=== PATIENT | female | born 1945 | race Caucasian/White ===

== ENCOUNTER → 2023-09-03 11:21 | Outpatient (REF) | payer MEDICARE, SELFPAY ==
[2023-09-03 11:56] LABS: % Basophils 0.6 % (0-2); % Eosinophils 4.1 % (0-6); % Immature Granulocytes 0.1 % (0-0.5); % Lymphocytes 28.3 % (20.5-51.1); % Monocytes 5.3 % (1.7-9.3); % Neutrophils 61.6 % (42.2-75.2); Absolute Basophils 0.1 10^3/uL (0-0.2); Absolute Eosinophils 0.3 10^3/uL (0-0.7); Absolute Lymphocytes 2.2 10^3/uL (1.2-3.4); Absolute Monocytes 0.4 10^3/uL (0.1-0.6); Absolute Neutrophils 4.9 10^3/uL (1.4-6.5); Hematocrit 41.3 % (37.0-47.0); Hemoglobin 13.7 g/dL (12.0-16.0); Mean Corp Hgb Conc. 33.2 g/dL (33.0-37.0); Mean Corpuscular Hgb 29.1 pg (27.0-31.0); Mean Corpuscular Volume 87.7 fL (81.0-99.0); Mean Platelet Volume 10.9 fL (7.4-10.4); Nucleated Red Blood Cells % 0 %; Platelet Count 211 10^3/uL (130-400); Red Blood Cell Count 4.71 10^6/uL (4.20-5.40); Red Cell Dist. Width 12.9 % (11.5-14.5); White Blood Cell Count 7.9 10^3/uL (4.8-10.8)
[2023-09-03 12:14] LABS: Free T4 1.96 ng/dl (0.78-2.19)
[2023-09-03 12:15] LABS: Free T3 4.12 pg/ml (2.77-5.27)
[2023-09-03 12:19] LABS: ALT (SGPT) 21 U/L (0-35); AST (SGOT) 24 U/L (14-36); Albumin 4.6 g/dl (3.5-5.0); Alkaline Phosphatase 108 U/L (38-126); Blood Urea Nitrogen 9 mg/dl (7-17); Calcium 9.8 mg/dl (8.4-10.2); Carbon Dioxide 27 mmol/L (22-30); Chloride 105 mmol/L (98-107); Glucose 124 mg/dl (70-99); HDL Cholesterol 65 mg/dl; LDL Cholesterol, Calculated 68 mg/dl; Potassium 4.4 mmol/L (3.5-5.1); Sodium 139 mmol/L (135-145); Total Bilirubin 1.2 mg/dl (0.2-1.3); Total Cholesterol 157 mg/dl (50-199); Total Protein 7.2 g/dl (6.3-8.2); Triglyceride 122 mg/dl (10-149); Very Low Density Lipoprotein 24 mg/dl (0-30); eGFR > 60.00
[2023-09-03 12:27] LABS: TSH < 0.02 uIU/ml (0.47-4.68)
[2023-09-03 12:36] LABS: Protein/creatinine Ratio 0.1; Urine Protein 6 mg/dl
[2023-09-03 12:41] LABS: Microalbumin, Random Urine 1.4 mg/dl (0.6-1.7); Microalbumin/creatinine Ratio 16.3 mg/g
[2023-09-05 22:32] LABS: Total T3 (Sendout) 137 ng/dL (80-200)
== END ==
LOC: REG 11:21
PROVIDERS: ATTENDING PHYSICIAN Physician Assistant; FAMILY PHYSICIAN Family Medicine
DX: E11.9 Type 2 diabetes mellitus without complications (principal); E05.90 Thyrotoxicosis, unspecified without thyrotoxic crisis or storm
CPT/HCPCS: 36415; 80053; 80061; 82043; 82570; 83036; 84156; 84439; 84443; 84480; 84481; 85025

== ENCOUNTER 2023-10-17 10:40 | Emergency (ER) | payer MEDICARE, SELFPAY ==
[2023-10-17 11:09] VITALS: BP 166/81
[2023-10-17 11:39] LABS: % Basophils 0.6 % (0-2); % Eosinophils 2.6 % (0-6); % Immature Granulocytes 0.3 % (0-0.5); % Lymphocytes 10.2 % (20.5-51.1); % Monocytes 5.2 % (1.7-9.3); % Neutrophils 81.1 % (42.2-75.2); Absolute Basophils 0.1 10^3/uL (0-0.2); Absolute Eosinophils 0.4 10^3/uL (0-0.7); Absolute Immature Granulocytes 0.1 10^3/uL (0-0.05); Absolute Lymphocytes 1.5 10^3/uL (1.2-3.4); Absolute Monocytes 0.8 10^3/uL (0.1-0.6); Absolute Neutrophils 11.7 10^3/uL (1.4-6.5); Hematocrit 39.2 % (37.0-47.0); Hemoglobin 13.4 g/dL (12.0-16.0); Mean Corp Hgb Conc. 34.2 g/dL (33.0-37.0); Mean Corpuscular Volume 84.8 fL (81.0-99.0); Mean Platelet Volume 10.5 fL (7.4-10.4); Nucleated Red Blood Cells % 0 %; Platelet Count 224 10^3/uL (130-400); Red Blood Cell Count 4.62 10^6/uL (4.20-5.40); Red Cell Dist. Width 12.8 % (11.5-14.5); White Blood Cell Count 14.4 10^3/uL (4.8-10.8)
[2023-10-17 12:00] LABS: ALT (SGPT) 21 U/L (0-35); AST (SGOT) 22 U/L (14-36); Albumin 4.6 g/dl (3.5-5.0); Alkaline Phosphatase 102 U/L (38-126); Blood Urea Nitrogen 16 mg/dl (7-17); Calcium 10.3 mg/dl (8.4-10.2); Carbon Dioxide 25 mmol/L (22-30); Chloride 103 mmol/L (98-107); Glucose 121 mg/dl (70-99); Potassium 4.1 mmol/L (3.5-5.1); Sodium 139 mmol/L (135-145); Total Protein 7.2 g/dl (6.3-8.2); eGFR > 60.00
[2023-10-17 12:04] LABS: Troponin I < 0.012 ng/ml
--- NOTE | 2023-10-17 15:33 | ED.GENMED ---
History of Present Illness
General
Chief Complaint: Chest Pain
Time Seen by Provider: 10/17/23 15:23
Travel History
Have you had any contact with someone who has COVID-19?: No
Do you have any symptoms of coronavirus? Fever > 100 degrees, chills, cough, shortness of breath, sore throat, loss of taste or smell, muscle aches, or headache?: No
History of Present Illness
History of Present Illness:
78-year-old female with history of insulin-dependent diabetes, aortic stenosis status post TAVR, and prior tobacco use presents to the emergency department for evaluation of transient episodes of chest pain that occurred beginning this morning.
States she had approximately 10 to 15 seconds of left-sided chest discomfort that began at approximately 8 AM today, had a repeat episode while waiting in the emergency department. She denies any symptoms currently. Has never had similar symptoms.
As of 2019 did have mild CAD on cardiac catheterization
Past History
Past History
ED Past Medical History: HTN, Hypercholesterolemia, NIDDM and Hyperthyroidism
ED Past Surgical History: Cardiac (TAVR) and Orthopedic (Right shoulder)
Social History
Tobacco: Non-smoker
Alcohol: None
Personal:
Living: with family
Employment: Retired
Family History
Family History: Other (Noncontributory)
Review of Systems
Review of Systems
Allergies reviewed?: Yes
All Other Systems: ROS reviewed and negative except as documented in HPI and ROS
Phy Exam
Physical Exam
Physical Exam:
GEN: Well appearing, NAD, WDWN
HEENT: Oral mucosa moist, no scleral icterus
Cardiac: Regular rate and rhythm, no significant murmur
Lung: No respiratory distress, no tachypnea, lungs clear to auscultation bilaterally
MSK: No gross deformity or injuries
Skin: Good color, no pallor or jaundice, no rashes
Neuro: AO x3, moves all extremities freely
Psych: Calm, cooperative
Scores
Heart Score for Chest Pain Patients
STEMI patient?: No
History: Slightly or Non-Suspicious
ECG: Normal
Age: >/= 65 years
Risk Factors: >/= 3 Risk Factors or History of CAD
Troponin: </= Normal Limit
Heart Score for Chest Pain Patients: 4
Heart Score Risk: 20.3% MACE over next 6 weeks
Course
Orders/Labs/Results
Orders:
Orders
10/17/23 11:14
Electrocardiogram (*1) Urgent
Reason for Study: Chest Pain
EKG- Treatment ONCE
10/17/23 11:31
Complete Blood Count/With Diff Urgent
Comprehensive Metabolic Panel Urgent
Troponin I Urgent
10/17/23 15:32
CR Chest - 2 Views Urgent
Comment:
Reason For Exam: chest pain
10/17/23 15:38
Troponin I Urgent
Abnormal Lab Results
10/17/23
11:31
WBC 14.4 H 10^3/uL
(4.8-10.8)
MPV 10.5 H fL
(7.4-10.4)
Abs Immat Gran (auto) 0.1 H 10^3/uL
(0-0.05)
Absolute Neuts (auto) 11.7 H 10^3/uL
(1.4-6.5)
Absolute Monos (auto) 0.8 H 10^3/uL
(0.1-0.6)
Neutrophils % 81.1 H %
(42.2-75.2)
Lymphocytes % 10.2 L %
(20.5-51.1)
Creatinine 0.4 L mg/dL
(0.6-1.0)
Glucose 121 H mg/dl
(70-99)
Calcium 10.3 H mg/dl
(8.4-10.2)
10/17/23 11:31
10/17/23 11:31
Vital Signs
Initial and Last Documented VS:
Initial Vital Signs
Temp Pulse Resp BP Pulse Ox
97.8 F 80 18 166/81 95
10/17/23 11:09 10/17/23 11:09 10/17/23 11:09 10/17/23 11:09 10/17/23 11:09
Last Documented Vital Signs
Temp Pulse Resp BP Pulse Ox
97.8 F 86 26 150/81 95
10/17/23 11:09 10/17/23 15:45 10/17/23 15:45 10/17/23 16:44 10/17/23 15:34
MDM/Problems Addressed
MDM/Problems Addressed:
Patient's initial and delta troponins are negative. He has had transient episode of chest pain that was nonexertional over the course of the day occurring on only 2 occasions, highly unlikely that this represents ACS. She has no shortness of
breath to suggest pulmonary embolism. Lungs are clear on chest x-ray. Likely musculoskeletal versus GI mediated pain. Discussed further supportive care
Comment
Comment:
EKG independently interpreted by me shows normal sinus rhythm with left bundle branch block at a rate of [address] changes suspicious for ischemia
*Critical Care Note
Total Time (30-74mins, 75-104mins- exclusive of procedures): Not Applicable
ED Attending Note
-
Portions of this chart may have been created with voice recognition software.� Occasional wrong word or��sound alike� substitutions may have occurred due to the inherent limitations of voice recognition software.
Discharge Plan
Departure
Patient Disposition: Home (Routine Discharge)
Date of Disposition: 10/17/23
Time of Disposition: 16:30
Patient with high blood pressure during this ER visit?: Yes
Discharge Problem:
Atypical chest pain
Instructions: Chest Pain PCP Follow Up
Prescriptions:
No Action
metformin 500 mg Tablet
500 mg PO BID@0800,1700
loperamide 2 mg Capsule
2 mg PO DAILY PRN (Reason: diarrhea)
cetirizine 10 mg Tablet
10 mg PO DAILY PRN (Reason: allergies)
metoprolol succinate 50 mg Tablet Extended Release 24 Hr
50 mg PO BID
tetrahydrozoline 0.05 % Drops
1 drp BOTH EYES DAILY PRN (Reason: allergies)
therapeutic multivitamin Tablet
1 tab PO DAILY
cranberry 450 mg Tablet
450 mg PO DAILY
atorvastatin 40 MG tablet
40 mg PO QPM
aspirin 81 mg Tablet,Chewable
81 mg PO BID Qty: 60 0RF
Rx Instructions:
for DVT prophylaxis. After 1 month please go back to once daily dosing.
docusate sodium 100 mg Capsule
100 mg PO BID Qty: 20 0RF
hydrocortisone 1 % Ointment
1 applic topical BID Qty: 28.35 0RF
Rx Instructions:
L arm skin rash
polyethylene glycol 3350 [HealthyLax] 17 gram Powder In Packet
17 g PO BID Qty: 30 0RF
pantoprazole 40 mg Tablet,Delayed Release (Dr/Ec)
40 mg PO DAILY Qty: 30 0RF
ondansetron 4 mg Tablet,Disintegrating
4 mg PO Q8HPRN PRN (Reason: nausea/vomiting) Qty: 20 0RF
oxycodone 5 mg Tablet
5 mg PO Q4HPRN PRN (Reason: mild pain) Qty: 20 0RF
Referrals:
NONE,* [Active] -
Interventions
Interventions:
*Risk Screen - Suicide Last Done: 10/17/23 11:09
*General Assessment Last Done: 10/17/23 11:09
*Neglect/Abuse Screening Last Done: 10/17/23 11:09
*Nursing Disposition Last Done: 10/17/23 16:44
ED- Cardiac Assessment Last Done: 10/17/23 15:30
Discharge Date and Time
Discharge Date/Time: 10/17/23 16:48
Print Language: CITIZEN [place]
[2023-10-17 15:34] VITALS: BP 172/68
[2023-10-17 16:22] LABS: Troponin I < 0.012 ng/ml
[2023-10-17 16:44] VITALS: BP 150/81
== END 2023-10-17 16:48 | disposition home or self-care (01) ==
LOC: EMR 10:40
PROVIDERS: Emergency Medicine; Physician Assistant; EMERGENCY PHYSICIAN Emergency Medicine; FAMILY PHYSICIAN Family Medicine
DX: R07.89 Other chest pain (principal); I10 Essential (primary) hypertension; E11.9 Type 2 diabetes mellitus without complications; I35.0 Nonrheumatic aortic (valve) stenosis; Z95.2 Presence of prosthetic heart valve
CPT/HCPCS: 99285; 71046; 80053; 84484; 85025; 93005

== ENCOUNTER → 2024-09-18 15:05 | Outpatient (REF) | payer MEDICARE, SELFPAY | LOC: RCS 15:05 | PROVIDERS: ATTENDING PHYSICIAN Internal Medicine Cardiovascular Disease; FAMILY PHYSICIAN Family Medicine | DX: I50.21 Acute systolic (congestive) heart failure (principal); Z95.2 Presence of prosthetic heart valve; I25.10 Atherosclerotic heart disease of native coronary artery without angina pectoris | CPT/HCPCS: 93306 ==